=== PATIENT | male | born 1955 ===

== ENCOUNTER 2020-04-13 13:58 | Outpatient (CLI) | payer BC ==
--- NOTE | 2020-04-13 17:12 | MRI ---
RIGHT SHOULDER MRI WITHOUT IV CONTRAST: 04/13/20 HISTORY: Tear of right rotator cuff, right shoulder pain. Multiplanar and multisequence MR examination of the right shoulder is performed. Very severe AC joint arthrosis changes are noted with some subchondral cystic changes and mild downsl oping of the anterior acromion and lateral acromion with the humeral head abutting the undersurface o f the lateral acromion and minimal subacromial spurring. 3 cm diameter focus of T2 hyperintensity and T1 hypointensity in the humeral head/neck junction evidence for a small nonaggressive chondroid matr ix tumor such as an enchondroma without adjacent marrow edema. There is a complete full thickness ret racted tear of the supraspinatus tendon back to the level of the glenoid. There is a near complete hi gh grade tear of the supraspinatus tendon with partial retraction and extensive delamination back to the myotendinous region. Complete full thickness retracted tear of the subscapularis tendon. Complete full thickness retracted biceps tendon tear with disruption of the biceps tendon lizz complex. Liat y poorly defined severely blunted labrum. No acute abnormal marrow edema. IMPRESSION: Very extensive longstanding rotator cuff tears with severe muscle volume loss of the supraspinatus an d infraspinatus muscles. 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 Other findings as above. POS: [facility]
== END 2020-04-13 13:59 | disposition home or self-care (01) ==
LOC: BICMRI 13:58
PROVIDERS: ATTEND Orthopaedic Surgery
DX: M75.101 Unspecified rotator cuff tear or rupture of right shoulder, not specified as traumatic (principal); M19.011 Primary osteoarthritis, right shoulder